=== PATIENT | male | born 1960 | race Two or more races ===

== ENCOUNTER 2020-07-03 19:06 | Inpatient (IN) | payer MEDICARE, OTHER ==
[~2020-07-03] VITALS: Ht 185.4 cm; Wt 86.2 kg
[2020-07-03] MEDS ORDERED: ACETAMINOPHEN 325 MG TABLET PO PRN (22:00)
[2020-07-03] MEDS ORDERED: MAGNESIUM HYDROXIDE 30 ML UDC PO PRN (22:00)
[2020-07-03] MEDS ORDERED: MAG HYDROX/AL HYDROX/SIMETH 30 ML UDC PO PRN (22:00)
[2020-07-03] MEDS ORDERED: TEMAZEPAM 15 MG CAPSULE PO PRN (22:00)
[2020-07-03] MEDS ORDERED: GABA-532 PO ×2 (22:18→23:41)
[2020-07-03] MEDS ORDERED: MULT-754 PO (22:19)
[2020-07-03] MEDS ORDERED: MIRT30TA PO (22:19)
[2020-07-03] MEDS ORDERED: QUET100T PO (22:20)
--- NOTE | 2020-07-03 22:45 | NUR ---
GPS RN NOTE: INSOMNIA UPON ADMISSION, PT STATED HE HAS DIFFICULTY SLEEPING AND NORMALLY TAKES SLEEPING MEDICATION FOR THE ISSUE. PT STATED "AM I ABLE TO GET SOMETHING TO HELP ME SLEEP RIGHT NOW, I REALLY NEED IT". MED RECON WAS DONE, ADMINISTERED PRN RESTORIL @ 1575. WILL REASSESS AND CONTINUE TO MONITOR Q15MIN FOR SAFETY AND BEHAVIOR.
[2020-07-03] MEDS ORDERED: BLOOD SUGAR DIAGNOSTIC 1 EACH STRIP IN ONE (23:00)
[2020-07-04 00:19] VITALS: BP 158/90
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
--- NOTE | 2020-07-04 00:58 | NUR ---
GPS RN NOTE, PATIENT HAS A COMPLAINT THAT HE TAKES GABAPENTIN FOR PERIPHERAL NEUROPATHY AND WOULD LIKE TO CONTINUE TAKING GABAPENTIN DURING HIS STAY AT [facility]. PAGED [facility] AND INFORMED LEVON TOLLIVER NP OF MY FINDINGS. LEVON TOLLIVER NP ORDERED TO GIVE GABAPENTIN 300 MG PO TID SCHEDULED STARTING AT 0900. ALL ORDERS NOTED AND CARRIED OUT WILL CONTINUE TO MONITOR THIS PATIENT WITH THE HELP OF STAFF.
[2020-07-04 07:04] LABS: BASOPHILS # (AUTO) 0.1 /CMM (0.0-0.2); BASOPHILS % (AUTO) 1.1 % (0.0-2.0); HEMATOCRIT 41 % (39-51); HEMOGLOBIN 14.1 g/dL (13.5-17.5); LYMPHOCYTES # (AUTO) 1.6 /CMM (0.8-4.8); MEAN CORPUSCULAR HGB CONC 34 g/dl (31.0-36.0); MEAN CORPUSCULAR VOLUME 99 fL (80-96); MONOCYTES # (AUTO) 0.8 /CMM (0.1-1.30); MONOCYTES % (AUTO) 15.6 % (2.0-12.0); NEUTROPHILS # (AUTO) 2.4 /CMM (1.8-8.9); NEUTROPHILS % (AUTO) 48.3 % (43.0-81.0); PLATELET COUNT (AUTO) 178 /CMM (150-450); RED BLOOD CELL COUNT(AUTO) 4.16 MIL/uL (4.5-6.0); WHITE BLOOD COUNT (AUTO) 4.9 K/uL (4.3-11.0)
[2020-07-04 07:14] LABS: CALCIUM, SERUM 8.6 mg/dL (8.5-10.1); CREATININE 0.9 mg/dL (0.6-1.3); POTASSIUM 3.8 mmol/L (3.5-5.1)
[2020-07-04] MEDS ORDERED: BUSP10TA35 PO (07:54)
[2020-07-04 08:00] VITALS: BP 118/67
[2020-07-04 09:15] LABS: BAND % (MANUAL) 1 % (0.0-5.0); EOSINOPHILS % (MANUAL) 6 % (0-4); LYMPHOCYTES % (MANUAL) 36 % (16-48); MONOCYTES % (MANUAL) 15 % (0-11.0); NEUTROPHILS % (MANUAL) 42 (42-76)
[2020-07-04] MEDS: LORAZEPAM 1 MG TABLET PO PRN ×3 (09:18→20:06)
[2020-07-04] MEDS: MULTIVITAMINS,THERAGRAN 1 UDTAB TABLET PO SCH (09:18)
[2020-07-04] MEDS: NICOTINE PATCH (21MG) 21 MG PATCH.TD24 TD SCH (09:18)
[2020-07-04] MEDS: GABAPENTIN 300 MG CAPSULE PO SCH ×3 (09:18→17:04)
--- NOTE | 2020-07-04 09:18 | NUR ---
rn notes administered Ativan 1 mg po prn for anxiety, and alcohol windrow. v/s taken bp 118/67, p53, r-18. continued monitoring.
[2020-07-04] MEDS ORDERED: Z GUARD REMEDY 2 OZ OINT TP PRN (10:00)
--- NOTE | 2020-07-04 10:01 | NUR ---
WOUND CARE CONSULT: PT PRESENTS WITH RASH TO INNER BUTTOCKS, PRESENT ON ADMISSION. PT IS AMBULATORY AND CONTINENT. RECOMMENDATIONS MADE FOR SKIN PROTECTION AND CARE. DISCUSSED WITH NURSING STAFF. WILL SEE PRN. JIMENEZ IN AGREEMENT WITH PLAN OF CARE. Addendum: 07/04/20 at 1002 by MEHRDAD BRIZUELA WNDNU Amended: Links added.
--- NOTE | 2020-07-04 11:01 | NUR ---
Substance Abuse Intervention: CANDIE conducted a substance abuse intervention with the pt regarding his alcohol abuse and drug abuse history.
--- NOTE | 2020-07-04 13:58 | NUR ---
RN NOTE-AGITATION/ PT C/O RESTLESSNESS AND ANXIETY. PT PACING HALLS. ATIVAN 1 MG GIVEN AT THIS TIME.
--- NOTE | 2020-07-04 15:18 | NUR ---
Initial Discharge Plan: Pt is currently homeless and would like assistance being placed in a SNF. SW will work with the pt and the MD regarding apprpriate discharge planning. SW will form a safe and proper discharge.
[2020-07-04 16:00] VITALS: BP 135/74
[2020-07-04] MEDS: CLOTRIMAZOLE 1% 15 GM TUBE TP SCH (17:05)
--- NOTE | 2020-07-04 20:08 | NUR ---
RN NOTES: ANXIETY PT C/O RESTLESSNESS AND ANXIETY.ASKING FOR ATIVAN, ATIVAN 1 MG PO PRN GIVEN , PER PT. REQUEST, WILL CONTINUE TO MONITOR.
[2020-07-04 20:14] VITALS: BP 119/72
[2020-07-04] MEDS: LITHIUM CARBONATE (300 MG CAP) 300 MG CAPSULE PO SCH (23:02)
[2020-07-04] MEDS: QUETIAPINE FUMARATE 25 MG TABLET PO SCH (23:02)
[2020-07-04] MEDS: MIRTAZAPINE 15 MG TABLET PO SCH (23:02)
[2020-07-05 00:30] LABS: APPEARANCE,URINE CLEAR (CLEAR); BILIRUBIN,URINE NEGATIVE (NEGATIVE); BLOOD, URINE NEGATIVE Ery/uL (NEGATIVE); COLOR,URINE YELLOW (YELLOW); KETONES,URINE NEGATIVE (NEGATIVE); LEUKOCYTE ESTERASE ,URINE NEGATIVE (NEGATIVE); NITRITE, URINE NEGATIVE (NEGATIVE); PROTEIN,URINE NEGATIVE (NEGATIVE); UGLUCOSE NEGATIVE (NEGATIVE); UROBILINOGEN,URINE 0.2 EU/dL (0.2)
[2020-07-05] MEDS: LORAZEPAM 1 MG TABLET PO PRN ×2 (06:23→18:44)
--- NOTE | 2020-07-05 06:24 | NUR ---
RN NOTES: ANXIETY PT C/O RESTLESSNESS AND ANXIETY.ASKING FOR ATIVAN, ATIVAN 1 MG PO PRN GIVEN , PER PT. REQUEST, WILL CONTINUE TO MONITOR.
--- NOTE | 2020-07-05 06:50 | NUR ---
RN NOTES: PT. RESTING IN HIS ROOM , NO ACUTE CHANGES NOTED, ALL NEEDS ANTICIPATED, WILL CONTINUITY WITH CARE.
[2020-07-05 07:04] LABS: THYROID STIMULATING HORMONE 2.288 uIU/mL (0.358-3.74)
[2020-07-05 08:00] VITALS: BP 132/80
[2020-07-05] MEDS ORDERED: diphenhydrAMINE HCL 50 MG CAPSULE PO ONE (08:30)
--- NOTE | 2020-07-05 08:40 | NUR ---
pt. calling out c/o thickness in throat,states allergic to lithium.call out to medical md and received order for benadryl.pt. medicated with same.
[2020-07-05] MEDS: LITHIUM CARBONATE (300 MG CAP) 300 MG CAPSULE PO SCH ×3 (09:00→17:00)
--- NOTE | 2020-07-05 09:30 | NUR ---
am lithium held.
--- NOTE | 2020-07-05 10:00 | NUR ---
JERILYN PHOTOCOPYING EQUIPMENT MECHANIC IN AND EXAMINED PT. AND INSPECTED TONGUE.
[2020-07-05] MEDS: NICOTINE PATCH (21MG) 21 MG PATCH.TD24 TD SCH (10:02)
[2020-07-05] MEDS: CLOTRIMAZOLE 1% 15 GM TUBE TP SCH ×2 (10:02→17:12)
[2020-07-05] MEDS: GABAPENTIN 300 MG CAPSULE PO SCH ×3 (10:02→17:12)
[2020-07-05] MEDS: QUETIAPINE FUMARATE 25 MG TABLET PO SCH ×2 (10:02→17:12)
[2020-07-05] MEDS: MULTIVITAMINS,THERAGRAN 1 UDTAB TABLET PO SCH (10:02)
[2020-07-05] MEDS ORDERED: diphenhydrAMINE HCL 50 MG/ML VIAL IV PRN (11:30)
[2020-07-05 16:00] VITALS: BP 131/72
--- NOTE | 2020-07-05 18:46 | NUR ---
GIVEN ATIVAN FOR NERVES.
--- NOTE | 2020-07-05 18:53 | NUR ---
LITHIUM HELD ALL DAY.PT. REFUSING.AWAITING ARRIVAL OF PSYCHIATRIST TO INFORM HIM PT. REFUSING MED.
[2020-07-05 20:00] VITALS: BP 127/80
[2020-07-05] MEDS: MIRTAZAPINE 15 MG TABLET PO SCH (21:48)
[2020-07-06 08:00] VITALS: BP 139/94
[2020-07-06] MEDS: QUETIAPINE FUMARATE 25 MG TABLET PO SCH ×2 (08:50→16:30)
[2020-07-06] MEDS: MULTIVITAMINS,THERAGRAN 1 UDTAB TABLET PO SCH (08:50)
[2020-07-06] MEDS: GABAPENTIN 300 MG CAPSULE PO SCH ×3 (08:50→16:30)
[2020-07-06] MEDS: DIVALPROEX SODIUM 250 MG TABLET.DR PO SCH ×3 (08:50→16:30)
[2020-07-06] MEDS: CLOTRIMAZOLE 1% 15 GM TUBE TP SCH ×2 (08:51→17:08)
[2020-07-06] MEDS: NICOTINE PATCH (21MG) 21 MG PATCH.TD24 TD SCH (09:02)
[2020-07-06] MEDS: LORAZEPAM 1 MG TABLET PO PRN ×3 (09:20→21:12)
--- NOTE | 2020-07-06 10:09 | NUR ---
RN-CO: ATIVAN 0.5 MG PO FOR ANXIETY. Addendum: 07/06/20 at 1521 by TOMMIE ANN RN RN-CO: 1 MG OF ATIVAN WAS GIVEN NOT 0.5 MG
--- NOTE | 2020-07-06 10:30 | NUR ---
RN-CO: Roseanne Sanchez NP seen and examined patient's right eye with no new orders.
--- NOTE | 2020-07-06 14:50 | NUR ---
RN-CO: ATIVAN 1 MG PO GIVEN , PATIENT IS C/O ANXIETY. Addendum: 07/06/20 at 2121 by BRICE SOLIS RN GPS RN NOTE: PT WAS ANXIOUS, RESTLESS, REQUESTED FOR ATIVAN TO HELP WITH ANXIETY. ATIVAN 1MG 1TAB GIVEN PO PRN ORDERED AT 2112. PT CURRENTLY LAYING ON BED. WILL CONTINUE TO MONITOR.
[2020-07-06 16:00] VITALS: BP 120/73
[2020-07-06 20:19] VITALS: BP 119/66
[2020-07-06] MEDS: MIRTAZAPINE 15 MG TABLET PO SCH (22:40)
[2020-07-07 07:55] VITALS: BP 119/65
[2020-07-07] MEDS: QUETIAPINE FUMARATE 25 MG TABLET PO SCH ×2 (08:33→17:35)
[2020-07-07] MEDS: DIVALPROEX SODIUM 250 MG TABLET.DR PO SCH ×3 (08:33→17:34)
[2020-07-07] MEDS: GABAPENTIN 300 MG CAPSULE PO SCH ×3 (08:34→17:34)
[2020-07-07] MEDS: MULTIVITAMINS,THERAGRAN 1 UDTAB TABLET PO SCH (08:34)
[2020-07-07] MEDS: NICOTINE PATCH (21MG) 21 MG PATCH.TD24 TD SCH (09:23)
[2020-07-07] MEDS: LORAZEPAM 1 MG TABLET PO PRN ×3 (09:23→22:46)
--- NOTE | 2020-07-07 09:23 | NUR ---
RN NOTE: ANXIETY PT C/O INCREASING ANXIETY. ANXIETY UNRELIEVED WITH COPING SKILLS. REQUESTING ATIVAN. ATIVAN 1MG PO PRN ADMINISTERED.
[2020-07-07] MEDS: CLOTRIMAZOLE 1% 15 GM TUBE TP SCH ×2 (09:27→17:35)
--- NOTE | 2020-07-07 14:23 | NUR ---
RN NOTE: ANXIETY PT REPORTING INCREASED ANXIETY AND IRRITABILITY. REQUESTING ATIVAN. ATIVAN 1MG PO PRN ADMINISTERED
[2020-07-07 16:00] VITALS: BP 115/72
[2020-07-07 20:16] VITALS: BP 124/87
[2020-07-07] MEDS: MIRTAZAPINE 15 MG TABLET PO SCH (22:09)
[2020-07-08] MEDS: NICOTINE PATCH (21MG) 21 MG PATCH.TD24 TD SCH (08:49)
[2020-07-08] MEDS: GABAPENTIN 300 MG CAPSULE PO SCH ×3 (08:49→16:28)
[2020-07-08] MEDS: DIVALPROEX SODIUM 250 MG TABLET.DR PO SCH ×3 (08:49→16:28)
[2020-07-08] MEDS: MULTIVITAMINS,THERAGRAN 1 UDTAB TABLET PO SCH (08:49)
[2020-07-08] MEDS: QUETIAPINE FUMARATE 25 MG TABLET PO SCH ×2 (08:49→16:28)
[2020-07-08] MEDS: CLOTRIMAZOLE 1% 15 GM TUBE TP SCH ×2 (08:57→16:38)
--- NOTE | 2020-07-08 11:02 | NUR ---
Individual Intervention with the Pt: SW spoke to the pt regarding his placement. SW stated that she will be sending out referrals for SNF placement as he does not currently have money and does have insurance that will cover it. SW stated that he cannot continue abusing drugs and alcohol and the pt stated that he understands that it has a negative impact on his life and that he has motivation to change.
[2020-07-08] MEDS: LORAZEPAM 1 MG TABLET PO PRN ×2 (12:46→19:59)
--- NOTE | 2020-07-08 12:46 | NUR ---
RN NOTE- AGITATION/ PT W RESTLESSNESS ANXIETY. REQUESTING PRN. ATIVAN 1 MG GIVEN
--- NOTE | 2020-07-08 14:51 | NUR ---
SNF Referral: CANDIE faxed a referral to [facility] with attention to [place] to the fax number: [phone].
[2020-07-08 16:00] VITALS: BP 114/61
[2020-07-08 19:53] VITALS: BP 120/66
--- NOTE | 2020-07-08 20:00 | NUR ---
GPS-RN NOTE: ANXIETY PATIENT C/O FEELING ANXIOUS AND REQUESTED FOR ATIVAN. ADMINISTERED ATIVAN 1MG PO ORDERED. WILL CONTINUE TO MONITOR FOR SAFETY AND BEHAVIOR.
[2020-07-08] MEDS: MIRTAZAPINE 15 MG TABLET PO SCH (21:06)
[2020-07-09 08:00] VITALS: BP 133/74
[2020-07-09] MEDS: MULTIVITAMINS,THERAGRAN 1 UDTAB TABLET PO SCH (08:39)
[2020-07-09] MEDS: GABAPENTIN 300 MG CAPSULE PO SCH ×3 (08:39→17:04)
[2020-07-09] MEDS: NICOTINE PATCH (21MG) 21 MG PATCH.TD24 TD SCH (08:39)
[2020-07-09] MEDS: DIVALPROEX SODIUM 250 MG TABLET.DR PO SCH ×3 (08:39→17:07)
[2020-07-09] MEDS: QUETIAPINE FUMARATE 25 MG TABLET PO SCH ×2 (08:39→17:04)
[2020-07-09] MEDS: LORAZEPAM 1 MG TABLET PO PRN ×2 (09:26→16:19)
--- NOTE | 2020-07-09 09:27 | NUR ---
GPS/RN-NOTES PATIENT STATED " I NEED ATIVAN FOR MY ANXIETY". ATIVAN 1MG P.O GIVEN PRN ORDER. WILL CONT. MONITORING FOR SAFETY AND BEHAVIOR.
--- NOTE | 2020-07-09 10:30 | NUR ---
GPS/RN-NOTES PATIENT IN THE ROOM LAYING IN BED CALM, NO ACUTE DISTRESS NOTED.
[2020-07-09] MEDS: CLOTRIMAZOLE 1% 15 GM TUBE TP SCH ×2 (11:01→17:07)
[2020-07-09 16:00] VITALS: BP 121/67
--- NOTE | 2020-07-09 16:20 | NUR ---
GPS/RN-NOTES PATIENT STATED " I NEED ATIVAN I'M VERY ANXIOUS". ATIVAN 1MG P.O GIVEN PRN ORDER. WILL CONT. MONITORING FOR SAFETY AND BEHAVIOR.
--- NOTE | 2020-07-09 17:20 | NUR ---
GPS/RN-NOTES PATIENT LAYING IN BED AWAKE,ALERT ,CALM NO ACUTE DISTRESS NOTED.
[2020-07-09 19:50] VITALS: BP 113/63
[2020-07-09] MEDS: MIRTAZAPINE 15 MG TABLET PO SCH (21:39)
[2020-07-10 08:00] VITALS: BP 110/64
[2020-07-10] MEDS: DIVALPROEX SODIUM 250 MG TABLET.DR PO SCH ×3 (08:39→16:27)
[2020-07-10] MEDS: GABAPENTIN 300 MG CAPSULE PO SCH ×3 (08:39→16:27)
[2020-07-10] MEDS: MULTIVITAMINS,THERAGRAN 1 UDTAB TABLET PO SCH (08:39)
[2020-07-10] MEDS: NICOTINE PATCH (21MG) 21 MG PATCH.TD24 TD SCH (08:39)
[2020-07-10] MEDS: QUETIAPINE FUMARATE 25 MG TABLET PO SCH ×2 (08:39→16:27)
[2020-07-10] MEDS: CLOTRIMAZOLE 1% 15 GM TUBE TP SCH ×2 (08:56→16:36)
[2020-07-10] MEDS: LORAZEPAM 1 MG TABLET PO PRN ×2 (10:04→17:51)
--- NOTE | 2020-07-10 10:05 | NUR ---
GPS/RN-NOTES PATIENT STATED " I NEED ATIVAN FOR MY ANXIETY". ATIVAN 1MG P.O GIVEN PRN ORDER. WILL CONT. MONITORING FOR SAFETY AND BEHAVIOR.
[2020-07-10 16:00] VITALS: BP 98/67
--- NOTE | 2020-07-10 17:52 | NUR ---
GPS/RN-NOTES PATIENT STATED " I NEED ATIVAN I'M VERY ANXIOUS". ATIVAN 1MG P.O GIVEN PRN ORDER. WILL CONT. MONITORING FOR SAFETY AND BEHAVIOR.
[2020-07-10 20:06] VITALS: BP 109/61
[2020-07-10] MEDS: MIRTAZAPINE 15 MG TABLET PO SCH (21:21)
[2020-07-11] MEDS: LORAZEPAM 1 MG TABLET PO PRN (06:20)
--- NOTE | 2020-07-11 06:24 | NUR ---
GPS RN NOTE: ANXIETY PT STATED "CAN I GET AN ATIVAN, IM FEELING PRETTY ANXIOUS". VITAL SIGNS STABLE, NO DISTRESS NOTED, ADMINISTERED ATIVAN PRN @ 0620. WILL REASSESS AND CONTINUE TO MONITOR Q15 MIN FOR SAFETY AND BEHAVIOR.
--- NOTE | 2020-07-11 06:37 | NUR ---
GPS RN NOTE: BLOOD DRAW REFUSAL PT REFUSED BLOOD DRAW THIS MORNING, WILL PASS IT ON TO AM SHIFT. EXPLAINED TO THE PT 3X ABOUT THE BENEFITS OF ALLOWING THE BLOOD DRAW. LAB SAID WILL TRY AGAIN LATER ON DURING THE DAY. WILL CONTINUE TO MONITOR Q15 MIN FOR SAFETY AND BEHAVIOR. Addendum: 07/11/20 at 0639 by JENNIFER MILES RN PLEASE IGNORE, WRONG PT. PT SISI CABALLERO DID NOT REFUSE BLOOD DRAW AND DID NOT HAVE BLOOD TAKEN THIS MORNING.
[2020-07-11 08:00] VITALS: BP 129/69
[2020-07-11] MEDS: DIVALPROEX SODIUM 250 MG TABLET.DR PO SCH ×2 (09:10→12:20)
[2020-07-11] MEDS: GABAPENTIN 300 MG CAPSULE PO SCH ×2 (09:10→12:22)
[2020-07-11] MEDS: MULTIVITAMINS,THERAGRAN 1 UDTAB TABLET PO SCH (09:10)
[2020-07-11] MEDS: NICOTINE PATCH (21MG) 21 MG PATCH.TD24 TD SCH (09:10)
[2020-07-11] MEDS: QUETIAPINE FUMARATE 25 MG TABLET PO SCH (09:10)
[2020-07-11] MEDS: CLOTRIMAZOLE 1% 15 GM TUBE TP SCH (09:11)
--- NOTE | 2020-07-11 12:05 | NUR ---
GPS/RN-NOTES RECEIVED T.O DISCHARGE ORDER FROM DR. GREENWOOD WITH ORDERS TO CONTINUE ALL PSYCH MEDICATIONS INCLUDING PRN'S NOTED AND CARRIED OUT.
--- NOTE | 2020-07-11 13:19 | NUR ---
SNF Contact: CANDIE faxed COVID result and notes to [facility] with attention to Rick to the fax number: [phone].
--- NOTE | 2020-07-11 13:41 | NUR ---
Discharge Note: Pt was discharged to [facility] ([facility]) located [place] [address] [place] [address]; ([phone]). Pt was transported via [facility] at 2PM. Upon discharge, pt appears to be in a euthymic mood and presents with a calm affect. The multidisciplinary exit care form was done, printed, signed, and given to the patient. Pt appeared to be alert and oriented x4 (time, place, self and situation). Pt denied both suicidal and homicidal ideation as well as auditory and visual hallucinations. Pt appeared ambulatory and well groomed. Pt signed the homeless waiver and was given resources including shelters, food [place]erson, showers, hot meals, mental health clinics, health clinics and substance abuse referrals. Pt will be under the care of psychiatrist, Dr. Peterson, located at [address] [place] [address]; and fence making machine operator, Dr. Clark, located at [address] [place] [address]; .
--- NOTE | 2020-07-11 14:30 | NUR ---
GPS/RN-NOTES RECEIVED DISCHARGE ORDER FROM DR. GREENWOOD .JACKY VERA MADE AWARE WITH ORDERS. PATIENT WAS DISCHARGE TO [facility] ( [facility]). REPORT WAS GIVEN TO GUERRERO (FIELD TECH).PATIENT LEFT THE UNIT A/O X3 AMBULATORY STEADY GAIT. PATIENT DID NOT VERBALIZE SI//HI,DENIES VISUAL/AUDITORY HALLUCINATIONS AT THE TIME OF DISCHARGE. JOURNEYMAN PAINTER BY CASE ( CRITICAL ACCESS HOSPITAL TRANSPORTATION STAFF) .ALL BELONGINGS WAS GIVEN BACK TO THE PATIENT. MASK WAS GIVEN TO THE PATIENT. NO FAMILY TO NOTIFY. Addendum: 07/11/20 at 1613 by NORMAN LEMON RN IN ADDITION TO MY ABOVE NOTES PATIENT STRONGLY REFUSED FULL BODY ASSESSMENT PRIOR TO DISCHARGE DESPITE EXPLANATIONS HOSPITAL POLICY.
== END 2020-07-11 14:30 | DRG 885 ==
LOC: GPS 21:13
PROVIDERS: ADMIT Psychiatry & Neurology Psychiatry; ATTEND Registered Nurse
DX: F31.5 Bipolar disorder, current episode depressed, severe, with psychotic features (principal); R45.851 Suicidal ideations; F10.239 Alcohol dependence with withdrawal, unspecified; F29 Unspecified psychosis not due to a substance or known physiological condition; F41.9 Anxiety disorder, unspecified; Z59.0 Homelessness; Z91.5 Personal history of self-harm; F17.210 Nicotine dependence, cigarettes, uncomplicated; Z73.6 Limitation of activities due to disability; Z71.6 Tobacco abuse counseling; F19.11 Other psychoactive substance abuse, in remission; S00.211A Abrasion of right eyelid and periocular area, initial encounter; X58.XXXA Exposure to other specified factors, initial encounter; Y93.9 Activity, unspecified; Y92.89 Other specified places as the place of occurrence of the external cause; Y90.9 Presence of alcohol in blood, level not specified
CPT/HCPCS: 36415; 80048-TC; 80061-TC; 81000-TC; 82962-TC; 84443-TC; 85025-TC; 87081-TC; Q0163

== ENCOUNTER 2023-04-29 03:20 | Emergency (ER) | payer MEDICAID, MEDICARE, OTHER ==
[~2023-04-29] VITALS: Ht 182.9 cm; Wt 86.2 kg
[~2023-04-29 03:20] MED LIST: GABA-532 PO; MULT-754 PO
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
--- NOTE | 2023-04-29 04:05 | NUR ---
SEEN BY DR MCCARTHY AT ROOM
[2023-04-29] MEDS ORDERED: IBUPROFEN 400 MG TABLET PO ONE (04:30)
[2023-04-29] MEDS ORDERED: PERM60CR4 TP (04:35)
[2023-04-29] MEDS ORDERED: IBUP-1957 PO (04:35)
[2023-04-29] MEDS ORDERED: IBUPROFEN 400 MG TABLET ONE (04:49)
--- NOTE | 2023-04-29 05:55 | NUR ---
SEX THERAPIST AT ROOM
--- NOTE | 2023-04-29 06:14 | NUR ---
Patient discharged to home in stable condition. Written and verbal after care instructions given. Patient verbalizes understanding of instruction.
[2023-04-29 06:31] VITALS: BP 142/84
== END 2023-04-29 06:31 | disposition home or self-care (01) ==
LOC: ER 03:37
DX: B86 Scabies (principal); M25.571 Pain in right ankle and joints of right foot; M25.561 Pain in right knee; F17.200 Nicotine dependence, unspecified, uncomplicated; Z59.00 Homelessness unspecified
CPT/HCPCS: 73564-TC; 73610-TC